=== PATIENT | male | born 1965 | race African-American/Black ===

== ENCOUNTER 2017-12-21 22:05 | Emergency (ER) | payer MEDICAID ==
[~2017-12-21] VITALS: Ht 182.9 cm; Wt 114.5 kg
[2017-12-21] MEDS ORDERED: NITROGLYCERIN 0.4MG TABLET SL SL PRN (23:00)
[2017-12-21] MEDS ORDERED: ASPIRIN 81MG TABLET PO ONE (23:00)
[2017-12-21 23:31] LABS: BASOPHILS % 0.6 % (0.0-2.0); EOSINOPHILS % 1.5 % (0.0-5.0); HEMATOCRIT. 42.1 % (42.0-52.0); HEMOGLOBIN. 13.9 g/dL (14.0-18.0); MEAN CORPUSCULAR HEMOGLOBIN 27.5 pg (28.0-32.0); MEAN CORPUSCULAR VOLUME 83.2 fL (80.0-94.0); MEAN PLATELET VOLUME 10.9 fl (7.4-10.4); MONOCYTES % 8.7 % (2.0-8.0); NEUTROPHILS % 59.2 % (40.0-76.0); PLATELET 198 x1000/uL (130-400); RED BLOOD CELL COUNT 5.05 mill/uL (4.7-6.1); RED CELL DISTRIBUTION WIDTH 14.9 % (11.6-14.6)
[2017-12-21 23:35] LABS: CHLORIDE 106 mEq/L (98-107)
[2017-12-21 23:39] LABS: PARTIAL THROMBOPLASTIN TIME 27.2 sec (23.4-31.0); PROTHROMBIN TIME 10.7 sec (9.4-11.6)
[2017-12-22 04:02] VITALS: BP 102/54
== END 2017-12-22 04:05 | disposition home or self-care (01) ==
LOC: ER 22:05
DX: R07.89 Other chest pain (principal); D72.829 Elevated white blood cell count, unspecified; M19.90 Unspecified osteoarthritis, unspecified site; F32.9 Major depressive disorder, single episode, unspecified; N17.9 Acute kidney failure, unspecified; I10 Essential (primary) hypertension; F41.9 Anxiety disorder, unspecified; Z87.891 Personal history of nicotine dependence
CPT/HCPCS: 36415; 71045; 80053; 83880; 84484; 85025; 85610; 85730; 93005; 99285

== ENCOUNTER 2018-06-22 12:30 | Emergency (ER) | payer MEDICAID ==
[~2018-06-22] VITALS: Ht 182.9 cm; Wt 119.0 kg
[2018-06-22] MEDS ORDERED: ONDANSETRON HCL 4MG/2ML INJ IV ONE ×2 (14:30→16:30)
[2018-06-22] MEDS ORDERED: MORPHINE SULFATE 10 MG/ML CPJ IV ONE (14:30)
[2018-06-22 14:47] LABS: CHLORIDE 107 mEq/L (98-107)
[2018-06-22 14:50] LABS: HEMATOCRIT. 41.7 % (42.0-52.0); HEMOGLOBIN. 13.9 g/dL (14.0-18.0); MEAN CORPUSCULAR HEMOGLOBIN 27.9 pg (28.0-32.0); MEAN CORPUSCULAR VOLUME 83.5 fL (80.0-94.0); MEAN PLATELET VOLUME 12.3 fl (7.4-10.4); PLATELET 162 x1000/uL (130-400); RED BLOOD CELL COUNT 4.99 mill/uL (4.7-6.1); RED CELL DISTRIBUTION WIDTH 14.2 % (11.6-14.6)
[2018-06-22 16:24] LABS: PLATELET ESTIMATE NORMAL
[2018-06-22 18:30] VITALS: BP 135/71
== END 2018-06-22 18:50 | disposition home or self-care (01) ==
LOC: ER 12:30
DX: R07.89 Other chest pain (principal); R11.2 Nausea with vomiting, unspecified; F41.9 Anxiety disorder, unspecified; M19.90 Unspecified osteoarthritis, unspecified site; F32.9 Major depressive disorder, single episode, unspecified; I10 Essential (primary) hypertension; Z98.890 Other specified postprocedural states
CPT/HCPCS: 36415; 80053; 84484; 85025; 93005; 96374; 96375; 96376; 99284; J2270; J2405

== ENCOUNTER 2018-06-24 12:15 | Emergency (ER) | payer MEDICAID ==
[~2018-06-24] VITALS: Ht 182.9 cm; Wt 117.0 kg
[2018-06-24 16:32] LABS: HEMATOCRIT. 42.3 % (42.0-52.0); HEMOGLOBIN. 13.8 g/dL (14.0-18.0); MEAN CORPUSCULAR HEMOGLOBIN 27.5 pg (28.0-32.0); MEAN CORPUSCULAR VOLUME 84.1 fL (80.0-94.0); MEAN PLATELET VOLUME 11.3 fl (7.4-10.4); PLATELET 155 x1000/uL (130-400); RED BLOOD CELL COUNT 5.02 mill/uL (4.7-6.1); RED CELL DISTRIBUTION WIDTH 14.4 % (11.6-14.6)
[2018-06-24 16:39] LABS: CHLORIDE 105 mEq/L (98-107)
[2018-06-24 16:50] LABS: ETHANOL BLOOD < 10 mg/dL
[2018-06-24 16:53] LABS: PARTIAL THROMBOPLASTIN TIME 31.5 sec (23.4-31.0); PROTHROMBIN TIME 10.5 sec (9.1-11.1)
[2018-06-24 17:04] LABS: PLATELET ESTIMATE NORMAL
[2018-06-24 18:28] LABS: CLARITY URINE CLEAR (CLEAR); COLOR URINE YELLOW (YELLOW); KETONES URINE 1+ (NEGATIVE); LEUKOCYTE ESTERASE URINE NEGATIVE (NEGATIVE); NITRITE URINE NEGATIVE (NEGATIVE); OCCULT BLOOD URINE NEGATIVE (NEGATIVE); PH URINE 5.5 (4.5-8.0); PROTEIN URINE TRACE (NEGATIVE); SPECIFIC GRAVITY URINE 1.027 (1.005-1.030)
[2018-06-24 18:39] LABS: *AMPHETAMINES SCREEN URINE NEGATIVE (NEGATIVE); *BARBITURATES SCREEN URINE NEGATIVE (NEGATIVE)
[2018-06-24 18:40] LABS: *BENZODIAZEPINES SCREEN URINE NEGATIVE (NEGATIVE); *COCAINE SCREEN URINE NEGATIVE (NEGATIVE); METHADONE URINE SCREEN NEGATIVE (NEGATIVE); OPIATES URINE SCREEN NEGATIVE (NEGATIVE)
[2018-06-24 18:41] LABS: PHENCYCLIDINE URINE SCREEN NEGATIVE (NEGATIVE)
[2018-06-24 18:43] LABS: CANNABINOID URINE SCREEN PRESUMTIVE POSITIVE (NEGATIVE)
[2018-06-24 19:18] VITALS: BP 129/93
== END 2018-06-24 19:21 | disposition home or self-care (01) ==
LOC: ER 12:15
DX: N50.82 Scrotal pain (principal); R10.13 Epigastric pain; K59.00 Constipation, unspecified; I10 Essential (primary) hypertension; R93.89 Abnormal findings on diagnostic imaging of other specified body structures; L02.419 Cutaneous abscess of limb, unspecified; F32.9 Major depressive disorder, single episode, unspecified; F41.9 Anxiety disorder, unspecified; M19.90 Unspecified osteoarthritis, unspecified site
CPT/HCPCS: 36415; 71045; 74176; 76870; 80053; 80305; 81003; 83690; 83880; 84484; 85025; 85610; 85730; 93005; 93976; 99284; G0482

== ENCOUNTER 2019-02-25 11:39 | Inpatient (IN) | payer MEDICAID ==
[~2019-02-25] VITALS: Ht 182.9 cm; Wt 112.5 kg
[2019-02-25] MEDS ORDERED: ONDANSETRON HCL 4MG/2ML INJ IV STA (13:48)
[2019-02-25] MEDS ORDERED: MORPHINE SULFATE 4 MG/ML CPJ (NOT FOR IM USE) IV STA (13:48)
[2019-02-25 14:31] LABS: BASOPHILS % 1.1 % (0.0-2.0); EOSINOPHILS % 1.5 % (0.0-5.0); HEMATOCRIT. 45.3 % (42.0-52.0); HEMOGLOBIN. 15.1 g/dL (14.0-18.0); LYMPHOCYTES % 37.5 % (20.0-50.0); MEAN CORPUSCULAR HEMOGLOBIN 27.9 pg (28.0-32.0); MEAN CORPUSCULAR VOLUME 83.7 fL (80.0-94.0); MEAN PLATELET VOLUME 11.3 fl (7.4-10.4); MONOCYTES % 8.9 % (2.0-8.0); PLATELET 169 x1000/uL (130-400); RED BLOOD CELL COUNT 5.41 mill/uL (4.7-6.1); RED CELL DISTRIBUTION WIDTH 14.7 % (11.6-14.6)
[2019-02-25 14:38] LABS: CHLORIDE 107 mEq/L (98-107)
[2019-02-25 14:39] LABS: PARTIAL THROMBOPLASTIN TIME 29.7 sec (23.4-31.0); PROTHROMBIN TIME 10.4 sec (9.6-11.0)
[2019-02-25] MEDS ORDERED: PRAZ2CAP2 MT (17:09)
[2019-02-25] MEDS ORDERED: TAMS-11 MT (17:22)
[2019-02-25] MEDS ORDERED: SERT-112 MT (17:22)
[2019-02-25] MEDS ORDERED: ATOR20TA65 MT (17:22)
[2019-02-25] MEDS ORDERED: ARIP30TA2 MT (17:22)
[2019-02-25] MEDS ORDERED: BETH50TA MT (17:22)
[2019-02-25] MEDS ORDERED: TIZA4TAB5 MT (17:22)
[2019-02-25] MEDS ORDERED: TRAZ-213 MT (17:22)
[2019-02-25] MEDS ORDERED: ACETAMINOPHEN 325MG TABLET PO PRN (17:30)
[2019-02-25] MEDS ORDERED: TIZANIDINE HCL 2MG TABLET PO PRN (17:30)
[2019-02-25] MEDS ORDERED: CLONIDINE 0.1MG TABLET PO PRN (17:30)
[2019-02-25] MEDS ORDERED: DOCUSATE SODIUM 100MG CAPSULE PO PRN (17:30)
[2019-02-25] MEDS ORDERED: ONDANSETRON HCL 4MG/2ML INJ IV PRN (17:30)
[2019-02-25] MEDS ORDERED: KETOROLAC 30MG/ML VIAL IV PRN (17:30)
[2019-02-25] MEDS ORDERED: TRAZODONE HCL 50MG TABLET PO PRN (17:30)
[2019-02-25] MEDS ORDERED: ENOXAPARIN 40MG/0.4ML SYR SUBCUT NR (18:00)
[2019-02-25] MEDS ORDERED: ARIPIPRAZOLE 10MG TABLET PO SCH (21:00)
[2019-02-25] MEDS ORDERED: ATORVASTATIN CALCIUM 20MG TABLET PO SCH (21:00)
[2019-02-25] MEDS: ATORVASTATIN CALCIUM 20MG TABLET PO SCH (21:00)
[2019-02-25] MEDS: TAMSULOSIN HCL 0.4MG SR CAPSULE PO SCH (21:00)
[2019-02-25] MEDS ORDERED: TAMSULOSIN HCL 0.4MG SR CAPSULE PO NR (21:15)
[2019-02-25] MEDS ORDERED: PRAZOSIN HCL 1MG CAPSULE PO NR (21:30)
[2019-02-25] MEDS ORDERED: ARIPIPRAZOLE 10MG TABLET PO NR (21:30)
[2019-02-25 22:00] VITALS: BP 142/81
[2019-02-25] MEDS: PRAZOSIN HCL 1MG CAPSULE PO SCH (22:00)
[2019-02-25 22:30] VITALS: BP 142/81
[2019-02-26] VITALS: BP 104/66
[2019-02-26 04:00] VITALS: BP 118/68
[2019-02-26 06:44] LABS: BASOPHILS % 0.4 % (0.0-2.0); EOSINOPHILS % 1.6 % (0.0-5.0); HEMATOCRIT. 42.5 % (42.0-52.0); HEMOGLOBIN. 13.9 g/dL (14.0-18.0); LYMPHOCYTES % 41.8 % (20.0-50.0); MEAN CORPUSCULAR HEMOGLOBIN 27.6 pg (28.0-32.0); MEAN CORPUSCULAR VOLUME 84.5 fL (80.0-94.0); MEAN PLATELET VOLUME 11.2 fl (7.4-10.4); MONOCYTES % 11.5 % (2.0-8.0); NEUTROPHILS % 44.7 % (40.0-76.0); PLATELET 152 x1000/uL (130-400); RED BLOOD CELL COUNT 5.03 mill/uL (4.7-6.1)
[2019-02-26 06:59] LABS: CREATINE KINASE 256 IU/L (39-308); HDL CHOLESTEROL 32 mg/dL (40-59); LDL CHOLESTEROL 90 mg/dL (5-100)
[2019-02-26 07:02] LABS: CREATINE KINASE MB FRACTION < 1.0 ng/mL (0.5-3.6)
[2019-02-26 08:00] VITALS: BP 105/80
[2019-02-26] MEDS: SERTRALINE HCL 100MG TABLET PO SCH (08:34)
[2019-02-26] MEDS: ENOXAPARIN 30MG/0.3ML SYR SUBCUT SCH ×2 (08:34→21:04)
[2019-02-26] MEDS ORDERED: BETHANECHOL CHLORIDE 25 MG TABLET PO SCH (09:00)
[2019-02-26 12:00] VITALS: BP 123/78
[2019-02-26 16:00] VITALS: BP 114/79
[2019-02-26] MEDS: BETHANECHOL CHLORIDE 25 MG TABLET PO SCH ×2 (17:39→21:31)
[2019-02-26 19:05] LABS: *BARBITURATES SCREEN URINE NEGATIVE (NEGATIVE)
[2019-02-26 19:06] LABS: *AMPHETAMINES SCREEN URINE NEGATIVE (NEGATIVE); *BENZODIAZEPINES SCREEN URINE NEGATIVE (NEGATIVE); *COCAINE SCREEN URINE NEGATIVE (NEGATIVE); METHADONE URINE SCREEN NEGATIVE (NEGATIVE); OPIATES URINE SCREEN PRESUMTIVE POSITIVE (NEGATIVE)
[2019-02-26 19:07] LABS: CANNABINOID URINE SCREEN NEGATIVE (NEGATIVE); PHENCYCLIDINE URINE SCREEN NEGATIVE (NEGATIVE)
[2019-02-26 20:00] VITALS: BP 134/88
[2019-02-26] MEDS: TAMSULOSIN HCL 0.4MG SR CAPSULE PO SCH (20:59)
[2019-02-26] MEDS: ATORVASTATIN CALCIUM 20MG TABLET PO SCH (20:59)
[2019-02-26] MEDS ORDERED: ARIPIPRAZOLE 10MG TABLET PO SCH (21:00)
[2019-02-26] MEDS: PRAZOSIN HCL 1MG CAPSULE PO SCH (21:02)
[2019-02-27] VITALS: BP 130/79
[2019-02-27 04:00] VITALS: BP 128/66
[2019-02-27 07:12] LABS: BASOPHILS % 0.4 % (0.0-2.0); EOSINOPHILS % 1.6 % (0.0-5.0); HEMATOCRIT. 43.3 % (42.0-52.0); HEMOGLOBIN. 14.4 g/dL (14.0-18.0); LYMPHOCYTES % 32.6 % (20.0-50.0); MEAN CORPUSCULAR HEMOGLOBIN 27.9 pg (28.0-32.0); MEAN PLATELET VOLUME 10.8 fl (7.4-10.4); MONOCYTES % 12.2 % (2.0-8.0); NEUTROPHILS % 53.2 % (40.0-76.0); PLATELET 161 x1000/uL (130-400); RED BLOOD CELL COUNT 5.16 mill/uL (4.7-6.1); RED CELL DISTRIBUTION WIDTH 14.2 % (11.6-14.6)
[2019-02-27 07:17] LABS: CHLORIDE 108 mEq/L (98-107)
[2019-02-27 08:00] VITALS: BP 119/83
[2019-02-27] MEDS: BETHANECHOL CHLORIDE 25 MG TABLET PO SCH (08:56)
[2019-02-27] MEDS: ENOXAPARIN 30MG/0.3ML SYR SUBCUT SCH (08:56)
[2019-02-27] MEDS: SERTRALINE HCL 100MG TABLET PO SCH (09:00)
[2019-02-27 12:00] VITALS: BP 108/73
[2019-02-27 13:21] VITALS: BP 108/73
== END 2019-02-27 14:27 | disposition home or self-care (01) | DRG 203 ==
LOC: ER 11:39 → 8WST 16:27 → EDBEDREQTM 16:30 → EDBEDREQ 16:30 → ENRESERV 20:25
PROVIDERS: ADMIT Internal Medicine; ATTEND Internal Medicine
DX: R07.89 Other chest pain (principal); E78.00 Pure hypercholesterolemia, unspecified; E78.5 Hyperlipidemia, unspecified; M54.2 Cervicalgia; G89.4 Chronic pain syndrome; I12.9 Hypertensive chronic kidney disease with stage 1 through stage 4 chronic kidney disease, or unspecified chronic kidney disease; N18.9 Chronic kidney disease, unspecified; J44.9 Chronic obstructive pulmonary disease, unspecified; N40.0 Benign prostatic hyperplasia without lower urinary tract symptoms; R20.0 Anesthesia of skin; F41.9 Anxiety disorder, unspecified; M19.90 Unspecified osteoarthritis, unspecified site; F17.200 Nicotine dependence, unspecified, uncomplicated
CPT/HCPCS: 36415; 70551; 71045; 72141; 73200; 80048; 80061; 80305; 80320; 82550; 82553; 82962; 83880; 84484; 93005; 93306; 93970; 99285; J1650; J1885; J2270; J2405; G0480

== ENCOUNTER 2019-09-23 09:10 | Inpatient (IN) | payer MEDICARE, MEDICAID ==
[~2019-09-23] VITALS: Ht 182.9 cm; Wt 108.9 kg
[~2019-09-23 09:10] MED LIST: ARIP30TA2 MT; ATOR20TA65 MT; BETH50TA MT; PRAZ2CAP2 MT; SERT-112 MT; TAMS-11 MT; TIZA4TAB5 MT; TRAZ-252 MT
[2019-09-23 10:35] LABS: BASOPHILS % 0.4 % (0.0-2.0); EOSINOPHILS % 0.2 % (0.0-5.0); HEMATOCRIT. 41.7 % (42.0-52.0); HEMOGLOBIN. 14.1 g/dL (14.0-18.0); LYMPHOCYTES % 13.9 % (20.0-50.0); MEAN CORPUSCULAR VOLUME 82.4 fL (80.0-94.0); MEAN PLATELET VOLUME 9.6 fl (7.4-10.4); MONOCYTES % 12.6 % (2.0-8.0); NEUTROPHILS % 72.9 % (40.0-76.0); PLATELET 278 x1000/uL (130-400); RED BLOOD CELL COUNT 5.05 mill/uL (4.7-6.1); RED CELL DISTRIBUTION WIDTH 14.1 % (11.6-14.6)
[2019-09-23 10:43] LABS: CHLORIDE 103 mEq/L (98-107)
[2019-09-23 10:48] LABS: CLARITY URINE CLOUDY (CLEAR); COLOR URINE DARK YELLOW (YELLOW); KETONES URINE TRACE (NEGATIVE); LEUKOCYTE ESTERASE URINE 3+ (NEGATIVE); NITRITE URINE POSITIVE (NEGATIVE); OCCULT BLOOD URINE 2+ (NEGATIVE); PROTEIN URINE 1+ (NEGATIVE); SPECIFIC GRAVITY URINE 1.024 (1.005-1.030)
[2019-09-23] MEDS ORDERED: KETOROLAC 30MG/ML VIAL IV ONE (11:00)
[2019-09-23] MEDS ORDERED: SODIUM CHLORIDE 0.9% 1,000 ML IV ONE (11:31)
[2019-09-23] MEDS ORDERED: CEFTRIAXONE 2 G PREMIX 50 ML IV ONE (13:45)
[2019-09-23] MEDS ORDERED: CLONIDINE 0.1MG TABLET PO PRN (15:45)
[2019-09-23] MEDS ORDERED: IPRATROPIUM/ALBUTEROL 0.5-3(2.5)MG/3ML NEB HHN PRN (15:45)
[2019-09-23] MEDS ORDERED: ACETAMINOPHEN 325MG TABLET PO PRN (15:45)
[2019-09-23 16:00] VITALS: BP_SYST 110; BP_SYST 150; BP_DIAS 60; BP_DIAS 64
[2019-09-23] MEDS ORDERED: ENOXAPARIN 40MG/0.4ML SYR SUBCUT SCH (17:00)
[2019-09-23 17:12] LABS: PHOSPHORUS 2.5 mg/dL (2.5-4.9)
[2019-09-23 17:48] VITALS: BP 110/60
[2019-09-23] MEDS: ENOXAPARIN 120MG/0.8ML SYR SUBCUT SCH (18:54)
[2019-09-23] MEDS: MORPHINE SULFATE 2 MG/ML CPJ (NOT FOR IM USE) IV PRN (18:55)
[2019-09-23 20:00] VITALS: BP 100/62
[2019-09-23] MEDS ORDERED: INFLUENZA VIRUS VACCINE(AFLURIA) 0.5ML SYR IM ONE (20:00)
[2019-09-23] MEDS ORDERED: PNEUMOCOCCAL 23-VAL P-SAC VAC 0.5 ML IM ONE (20:00)
[2019-09-23] MEDS: CEFEPIME 1,000 MG in DEXTROSE 5% WATER 50 ML IV SCH (22:04)
[2019-09-23 22:30] LABS: INR 1.1; PROTHROMBIN TIME 11.8 sec (9.6-11.0)
[2019-09-24] VITALS: BP 115/74
[2019-09-24] MEDS: MORPHINE SULFATE 2 MG/ML CPJ (NOT FOR IM USE) IV PRN ×2 (00:17→08:05)
[2019-09-24 04:00] VITALS: BP 101/65
[2019-09-24] MEDS: ENOXAPARIN 120MG/0.8ML SYR SUBCUT SCH ×2 (05:48→17:12)
[2019-09-24 07:30] LABS: BASOPHILS % 0.6 % (0.0-2.0); EOSINOPHILS % 0.3 % (0.0-5.0); HEMATOCRIT. 40.8 % (42.0-52.0); HEMOGLOBIN. 13.7 g/dL (14.0-18.0); LYMPHOCYTES % 16.4 % (20.0-50.0); MEAN CORPUSCULAR HEMOGLOBIN 27.8 pg (28.0-32.0); MEAN PLATELET VOLUME 9.4 fl (7.4-10.4); MONOCYTES % 14.4 % (2.0-8.0); NEUTROPHILS % 68.3 % (40.0-76.0); PLATELET 273 x1000/uL (130-400); RED BLOOD CELL COUNT 4.91 mill/uL (4.7-6.1); RED CELL DISTRIBUTION WIDTH 13.9 % (11.6-14.6)
[2019-09-24 07:59] LABS: CHLORIDE 106 mEq/L (98-107)
[2019-09-24 08:00] VITALS: BP 114/68
[2019-09-24] MEDS: CEFEPIME 1,000 MG in DEXTROSE 5% WATER 50 ML IV SCH ×2 (08:05→22:25)
[2019-09-24 08:07] LABS: HDL CHOLESTEROL 22 mg/dL (40-59); LDL CHOLESTEROL 82 mg/dL (5-100)
[2019-09-24] MEDS ORDERED: CEFTRIAXONE 1 G PREMIX 50 ML IV SCH (09:00)
[2019-09-24 12:00] VITALS: BP 112/68
[2019-09-24] MEDS ORDERED: TIZANIDINE HCL 2MG TABLET PO PRN (14:00)
[2019-09-24] MEDS ORDERED: TRAZODONE HCL 50MG TABLET PO PRN (14:00)
[2019-09-24] MEDS ORDERED: MORPHINE SULFATE 2 MG/ML CPJ (NOT FOR IM USE) IV PRN (14:45)
[2019-09-24] MEDS: TAMSULOSIN HCL 0.4MG SR CAPSULE PO SCH (15:20)
[2019-09-24 16:00] VITALS: BP 117/73
[2019-09-24] MEDS: BETHANECHOL CHLORIDE 25 MG TABLET PO SCH (17:11)
[2019-09-24 20:00] VITALS: BP 113/66
[2019-09-24] MEDS: ARIPIPRAZOLE 5MG TABLET PO SCH (22:26)
[2019-09-24] MEDS: ATORVASTATIN CALCIUM 20MG TABLET PO SCH (22:27)
[2019-09-24] MEDS: PRAZOSIN HCL 1MG CAPSULE PO SCH (22:27)
[2019-09-25] VITALS: BP 121/68
[2019-09-25 04:00] VITALS: BP 104/62
[2019-09-25] MEDS: ONDANSETRON HCL 4MG/2ML INJ IV PRN ×2 (05:13→13:09)
[2019-09-25] MEDS: ENOXAPARIN 120MG/0.8ML SYR SUBCUT SCH ×2 (05:14→17:16)
[2019-09-25 08:00] VITALS: BP 90/59
[2019-09-25] MEDS: SERTRALINE HCL 100MG TABLET PO SCH (08:18)
[2019-09-25] MEDS: CEFEPIME 1,000 MG in DEXTROSE 5% WATER 50 ML IV SCH (08:18)
[2019-09-25] MEDS: BETHANECHOL CHLORIDE 25 MG TABLET PO SCH ×3 (08:19→17:11)
[2019-09-25] MEDS: TAMSULOSIN HCL 0.4MG SR CAPSULE PO SCH (08:31)
[2019-09-25 12:00] VITALS: BP 90/48
[2019-09-25 16:00] VITALS: BP 103/66
[2019-09-25] MEDS: MEROPENEM 500 MG in SODIUM CHLORIDE 0.9% 50 ML IV SCH (17:21)
[2019-09-25 20:00] VITALS: BP 105/75
[2019-09-25] MEDS: PRAZOSIN HCL 1MG CAPSULE PO SCH (21:00)
[2019-09-25] MEDS: ARIPIPRAZOLE 5MG TABLET PO SCH (21:28)
[2019-09-25] MEDS: ATORVASTATIN CALCIUM 20MG TABLET PO SCH (21:28)
[2019-09-26] VITALS: BP 124/65
[2019-09-26 04:00] VITALS: BP 118/59
[2019-09-26] MEDS: ENOXAPARIN 120MG/0.8ML SYR SUBCUT SCH (06:35)
[2019-09-26] MEDS: MEROPENEM 500 MG in SODIUM CHLORIDE 0.9% 50 ML IV SCH (06:35)
[2019-09-26 07:19] LABS: HEMATOCRIT. 41.5 % (42.0-52.0); MEAN CORPUSCULAR HEMOGLOBIN 27.8 pg (28.0-32.0); MEAN CORPUSCULAR VOLUME 82.6 fL (80.0-94.0); MEAN PLATELET VOLUME 9.4 fl (7.4-10.4); PLATELET 295 x1000/uL (130-400); RED BLOOD CELL COUNT 5.03 mill/uL (4.7-6.1); RED CELL DISTRIBUTION WIDTH 13.6 % (11.6-14.6)
[2019-09-26 07:31] LABS: CHLORIDE 106 mEq/L (98-107)
[2019-09-26 08:00] VITALS: BP 111/75
[2019-09-26] MEDS: BETHANECHOL CHLORIDE 25 MG TABLET PO SCH ×2 (08:31→12:04)
[2019-09-26] MEDS: SERTRALINE HCL 100MG TABLET PO SCH (08:32)
[2019-09-26] MEDS: TAMSULOSIN HCL 0.4MG SR CAPSULE PO SCH (08:32)
[2019-09-26 11:50] LABS: PLATELET ESTIMATE NORMAL
[2019-09-26 12:00] VITALS: BP 101/74
[2019-09-26] MEDS: ONDANSETRON HCL 4MG/2ML INJ IV PRN (12:11)
[2019-09-26] MEDS ORDERED: NITR-87 MT (13:36)
[2019-09-26] MEDS ORDERED: APIX5TAB MT (13:36)
[2019-09-26] MEDS ORDERED: APIXABAN 5 MG TABLET PO SCH (13:45)
[2019-09-26 14:35] VITALS: BP 101/74
[2019-09-27 13:10] LABS: HIV SCREEN 4G Non Reactive (Non Reactive)
== END 2019-09-26 15:10 | disposition home or self-care (01) | DRG 872 ==
LOC: ER 09:10 → 6EST 13:32 → ENRESERV 14:16
PROVIDERS: ADMIT Internal Medicine; ATTEND Internal Medicine
DX: A41.9 Sepsis, unspecified organism (principal); I82.432 Acute embolism and thrombosis of left popliteal vein; N10 Acute pyelonephritis; B96.89 Other specified bacterial agents as the cause of diseases classified elsewhere; N40.1 Benign prostatic hyperplasia with lower urinary tract symptoms; G47.00 Insomnia, unspecified; I10 Essential (primary) hypertension; N30.90 Cystitis, unspecified without hematuria; R33.8 Other retention of urine; F32.9 Major depressive disorder, single episode, unspecified; F41.9 Anxiety disorder, unspecified; M19.90 Unspecified osteoarthritis, unspecified site; B96.20 Unspecified Escherichia coli [E. coli] as the cause of diseases classified elsewhere; Z79.899 Other long term (current) drug therapy; Z91.041 Radiographic dye allergy status
CPT/HCPCS: 36415; 74176; 80048; 80053; 80061; 81003; 83735; 84100; 84145; 84443; 85025; 87077; 87186; 87389; 93970; 94640; 94660; 99285; J0692; J0696; J1650; J1885; J2185; J2270; J2405; J7030; J7060

== ENCOUNTER 2020-01-20 19:43 | Emergency (ER) | payer MEDICARE, MEDICAID ==
[~2020-01-20] VITALS: Ht 182.9 cm; Wt 115.0 kg
[~2020-01-20 19:43] MED LIST changes: +APIX5TAB MT; +NITR-87 MT
[2020-01-20 19:58] VITALS: BP 129/89
[2020-01-20] MEDS ORDERED: TETRACAINE 0.5% OPHTH DROPS 4ML LEFTEYE ONE (20:45)
[2020-01-20] MEDS ORDERED: FLUORESCEIN SODIUM 1MG/STRIP LEFTEYE ONE (20:45)
== END 2020-01-20 21:44 | disposition home or self-care (01) ==
LOC: ER 19:43
DX: S05.02XA Injury of conjunctiva and corneal abrasion without foreign body, left eye, initial encounter (principal); X58.XXXA Exposure to other specified factors, initial encounter; Y93.9 Activity, unspecified; Y92.9 Unspecified place or not applicable; F41.9 Anxiety disorder, unspecified; M19.90 Unspecified osteoarthritis, unspecified site; F32.9 Major depressive disorder, single episode, unspecified; N40.0 Benign prostatic hyperplasia without lower urinary tract symptoms; I10 Essential (primary) hypertension; E78.5 Hyperlipidemia, unspecified; Z88.8 Allergy status to other drugs, medicaments and biological substances; Z86.718 Personal history of other venous thrombosis and embolism; Z98.890 Other specified postprocedural states
CPT/HCPCS: 99283

== ENCOUNTER 2020-09-20 00:30 | Emergency (ER) | payer MEDICARE, MEDICAID ==
[~2020-09-20] VITALS: Ht 182.9 cm; Wt 121.0 kg
[2020-09-20] MEDS ORDERED: RIVA20TA PO (02:10)
[2020-09-20] MEDS ORDERED: propanolol PO (02:12)
[2020-09-20 02:16] LABS: CHLORIDE 105 mEq/L (98-107)
[2020-09-20 02:18] LABS: BASOPHILS % 0.8 % (0.0-2.0); EOSINOPHILS % 2.9 % (0.0-5.0); HEMATOCRIT. 43.7 % (42.0-52.0); HEMOGLOBIN. 14.7 g/dL (14.0-18.0); LYMPHOCYTES % 44.5 % (20.0-50.0); MEAN CORPUSCULAR VOLUME 83.2 fL (80.0-94.0); MEAN PLATELET VOLUME 11.6 fl (7.4-10.4); MONOCYTES % 9.9 % (2.0-8.0); NEUTROPHILS % 41.9 % (40.0-76.0); PLATELET 172 x1000/uL (130-400); RED BLOOD CELL COUNT 5.26 mill/uL (4.7-6.1); RED CELL DISTRIBUTION WIDTH 14.7 % (11.6-14.6)
[2020-09-20] MEDS ORDERED: HYDROCODONE/ACETAMINOPHEN 5/325MG TABLET PO ONE (04:30)
[2020-09-20 05:00] VITALS: BP 158/103
[2020-09-20] MEDS ORDERED: IBUP-2028 MT (05:15)
== END 2020-09-20 06:20 | disposition home or self-care (01) ==
LOC: ER 00:30
DX: I10 Essential (primary) hypertension (principal); M79.604 Pain in right leg; E78.00 Pure hypercholesterolemia, unspecified; Z91.041 Radiographic dye allergy status; Z79.899 Other long term (current) drug therapy; Z98.890 Other specified postprocedural states
CPT/HCPCS: 36415; 71045; 80053; 83880; 84484; 85025; 93005; 93970; 99285

== ENCOUNTER 2022-08-20 04:57 | Emergency (ER) | payer MEDICARE, MEDICAID ==
[~2022-08-20] VITALS: Ht 182.9 cm; Wt 117.0 kg
[~2022-08-20 04:57] MED LIST changes: +IBUP-2028 MT; +RIVA20TA PO; +TIZA-204 MT; -TIZA4TAB5 MT; +propanolol PO
[2022-08-20 05:28] VITALS: BP 114/73
[2022-08-20] MEDS ORDERED: IBUPROFEN 600MG TABLET PO ONE (08:30)
[2022-08-20] MEDS ORDERED: ACETAMINOPHEN 325MG TABLET PO NR (08:45)
[2022-08-20 08:46] LABS: BASOPHILS % 0.5 % (0.0-2.0); EOSINOPHILS % 2.2 % (0.0-5.0); HEMATOCRIT. 39.9 % (42.0-52.0); HEMOGLOBIN. 13.2 g/dL (14.0-18.0); LYMPHOCYTES % 42.8 % (20.0-50.0); MEAN CORPUSCULAR HEMOGLOBIN 27.8 pg (28.0-32.0); MEAN CORPUSCULAR VOLUME 83.8 fL (80.0-94.0); MEAN PLATELET VOLUME 10.2 fl (7.4-10.4); MONOCYTES % 12.2 % (2.0-8.0); NEUTROPHILS % 42.3 % (40.0-76.0); PLATELET 180 x1000/uL (130-400); RED BLOOD CELL COUNT 4.76 mill/uL (4.7-6.1); RED CELL DISTRIBUTION WIDTH 14.1 % (11.6-14.6)
[2022-08-20 08:49] LABS: CHLORIDE 110 mEq/L (98-107)
[2022-08-20] MEDS ORDERED: BENZ1LOZ73 MT (09:58)
[2022-08-20] MEDS ORDERED: GUAI-450 MT (09:58)
== END 2022-08-20 10:36 | disposition home or self-care (01) ==
LOC: ER 04:57
DX: B34.9 Viral infection, unspecified (principal); I10 Essential (primary) hypertension; E78.00 Pure hypercholesterolemia, unspecified; M19.90 Unspecified osteoarthritis, unspecified site; N40.0 Benign prostatic hyperplasia without lower urinary tract symptoms; F32.A Depression, unspecified; F41.9 Anxiety disorder, unspecified; H40.9 Unspecified glaucoma; Z98.49 Cataract extraction status, unspecified eye; Z87.828 Personal history of other (healed) physical injury and trauma; Z87.891 Personal history of nicotine dependence; Z86.718 Personal history of other venous thrombosis and embolism; Z79.01 Long term (current) use of anticoagulants; Z91.041 Radiographic dye allergy status
CPT/HCPCS: 36415; 71045; 80053; 84484; 85025; 93005; 99285